=== PATIENT | male | born 1970 | race Caucasian/White ===

== ENCOUNTER → 2017-01-24 | Day surgery (SDC) | payer OTHER ==
[~2017-01-24] MED LIST: BUPIVACAINE HCL PF 0.25% 30 ML VIAL ONE; BUPIVACAINE/EPINEPHRINE 0.5% PF 30 ML VIAL ONE; KETOROLAC TROMETHAMINE 30 MG/ML (IVP) VIAL IV PUSH ONE; LACTATED RINGER'S 1000 ML INJ 1,000 ML ONE; MIDAZOLAM HCL 2 MG/2 ML VIAL ONE; NEOMYCIN/POLYMYXIN/BACITRACIN OINT 15 GM TUBE ONE; ONDANSETRON HCL 4 MG/2 ML VIAL IV PUSH ONE; PROPOFOL 200 MG/20 ML AMP IV ONE; ceFAZolin 2 GM PREMIX 50 ML ONE
--- NOTE | 2017-01-24 13:50 | MP ---
cc: [facility] DATE OF SURGERY 01/24/17 PREOPERATIVE DIAGNOSIS 1. 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 2. Bilateral feet soft tissue mass, clinically verruca. POSTOPERATIVE DIAGNOSIS 1. 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 2. Bilateral feet soft tissue mass, clinically verruca. PROCEDURES PERFORMED 1. Left fifth MPJ exostectomy. 2. Destruction of bilateral soft tissue mass with biopsy of clinically wart. SPECIMEN Left heel soft tissue mass and right heel soft tissue mass. ESTIMATED BLOOD LOSS Less than 30 ml. COMPLICATIONS None. ANESTHESIA General with local around the soft tissue mass 10 cc of 0.25% Marcaine with epinephrine was infiltrated, around the fifth ray left foot 0.25 Marcaine plain was infiltrated. TOURNIQUET TIME Tourniquet time 25 minutes at the left ankle. No tourniquet used on the right, at a pressure of 215 mmHg. PLAN OF ACTIVITY PACU then DC home once stable per same-day surgery criteria. Justification for procedure This is a pleasant 46-year-old male who clinically had a very large bursa underneath an inflamed fifth MPJ. An injection took place resolving the bursa, however, now a prominent fifth metatarsal remained. We tried offloading. We tried many means of conservative treatment and he failed. Subsequently, he has had clinically a verruca of the bilateral feet for many years. We exhausted salicylic acid that fails as well. We devised a plan to move forward with partial plantar condylectomy of the fifth MPJ arthroplasty with destruction of lesion with biopsy of the bilateral soft tissue masses. No guarantees were given or implied regarding outcome. The patient understood he may need more surgery at a later date, possible recurrence of verruca. PROCEDURE IN DETAIL Under mild sedation the patient was brought to the operating room, placed on the operating table in the supine position. Following the induction of general anesthesia, local anesthesia was obtained about the bilateral extremity in the surgical area of concern. The patient's bilateral feet were then scrubbed, prepped and draped in the usual aseptic fashion. Left foot was elevated, exsanguinated and the previously placed mid calf tourniquet was inflated to 215 mmHg. A lateral incision was made at the fifth MPJ being careful not to violate the neurovascular bundle. Sharp and blunt dissection was carried down to the joint capsule. An L-shaped capsulotomy was performed revealing a prominent plantar lateral fifth MPJ utilizing power instrumentation. This was then contoured to a flat more plain type surface, removing prominence. Bone wax was then placed at the arthroplasty bone site. Wound was flushed with copious amounts of normal saline. Deep capsule was closed utilizing Vicryl. Skin was closed utilizing nylon. The plantar aspect of the posterior medial heel and the plantar aspect of the right heel was both examined. There was a punctate nuclei lesion that was approximately 1 cm. A central biopsy was performed of the bilateral lesions. This was a full-thickness biopsy. This was sent for pathological analysis. Next, utilizing an 18 gauge needle, a needling type technique took place. Multiple poke holes were then made at the level of the lesion. Next, a bovie was used to further cauterize the lesion. A curette was then used to debride the lesion and that was followed with a repeat needling bovie procedure. Bandages were placed on the bilateral lower extremity. Upon relieving the tourniquet there was a prompt hyperemic response to all digits without any delayed capillary refill time. The patient was then transferred from OR to PACU with all vital signs stable upon uneventful extubation. Will await pathological analysis. The patient will ice, elevate. I will see the patient in 3-5 days. SARAH Brooke /8:12 AM /1:36 PM
== END | disposition home or self-care (01) ==
LOC: ESDC 06:24
PROVIDERS: ATTEND Podiatrist Foot & Ankle Surgery
DX: M21.622 Bunionette of left foot (principal); B07.0 Plantar wart
CPT/HCPCS: 00400; 01480; 17110; 28110; 88305; J0690; J1885; J2250; J2405; J7120